=== PATIENT | male | born 1980 | race Hispanic/Latino ===

== ENCOUNTER → 2024-01-07 | Day surgery (SDC) | payer OTHER ==
[~2024-01-07] MED LIST: LIDOCAINE HCL 2% LOCAL INJ 5 ML SDV VIAL INJ ONE; OMEPRAZOLE40 MG PO; PROPOFOL IV EMULSION 10 MG/ML 20 ML VIAL ONE
[2024-01-07] MEDS: LACTATED RINGER'S 1,000 ML ONE (07:55)
[2024-01-07 09:35] VITALS: TEMP 97.2
[2024-01-07 10:05] VITALS: BP 108/70; PULSE 76; RESP 16; O2SAT 100
== END | disposition home or self-care (01) ==
LOC: OR 06:25
PROVIDERS: ATTEND Internal Medicine Gastroenterology
DX: K29.50 Unspecified chronic gastritis without bleeding (principal); K31.A11 Gastric intestinal metaplasia without dysplasia, involving the antrum; K31.89 Other diseases of stomach and duodenum; K21.9 Gastro-esophageal reflux disease without esophagitis; Z71.3 Dietary counseling and surveillance; R06.02 Shortness of breath; Z78.9 Other specified health status; Z01.810 Encounter for preprocedural cardiovascular examination; Z68.31 Body mass index [BMI] 31.0-31.9, adult
CPT/HCPCS: 43239; 88305; 88342; 93005; J2001; J2704; J7121